=== PATIENT | female | born 1930 | race African-American/Black ===

== ENCOUNTER → 2016-09-29 | Outpatient (CLI) | payer OTHER, MEDICAID ==
--- NOTE | 2016-10-02 17:12 | PCVCIMAG ---
APPROVED REPORT Study performed: 09/29/2016 13:29:45 EXAM: Comprehensive 2D, Doppler, and color-flow Echocardiogram Patient Location: Echo lab Status: routine Other Information Study Quality: Adequate Indications Cardiomyopathy Hypertension/HDD Hypertrophic cardiomyopathy 2D Dimensions IVSd: 14.36 (7-11mm)LVOT Diam: 19.14 (18-24mm) LVDd: 35.49 mm PWd: 13.19 (7-11mm)Ascending Ao: 34.40 (22-36mm) LVDs: 14.86 (25-40mm) Left Atrium: 43.96 (27-40mm) Aortic Root: 21.23 mm LV Single Plane 4CH: 66.29 % LV Single Plane 2CH: 74.42 %Sierra's LVEF: 70.36 % Biplane EF: 69.7 % Volumes Left Atrial Volume (Systole) Single Plane 4CH: 75.59 mLSingle Plane 2CH: 68.57 mL Biplane LA Volume: 73.00 mLLA ESV Index: 45.00 mL/m2 Aortic Valve AoV Peak Dayron.: 2.47 m/s AO Peak Gr.: 25.04 mmHgLVOT Max P.12 mmHg AO Mean Gr.: 14.23 mmHgLVOT Mean P.17 mmHg AO V2 Mean: 1.81 m/sLVOT Max V: 1.17 m/s AO V2 VTI: 61.24 cmLVOT Mean V: 0.82 m/s HARPREET (VTI): 1.29 [id number] V1 VTI: 27.49 cm HARPREET Vmax: 1.36 cm2 SV (LVOT): 79.07 mL Mitral Valve E/A Ratio: 0.9 MV Decel. Time: 298.80 ms MV E Max Dayron.: 1.16 m/s MV A Dayron.: 1.27 m/s IVRT: 163.01 ms TDI E/Lateral E': 19.33E/Medial E': 23.20 Medial E' Dayron.: 0.05 m/s Lateral E' Dayron.: 0.06 m/s Pulmonary Valve PV Peak Dayron.: 0.92 m/sPV Peak Gr.: 3.42 mmHg Pulmonary Vein P Vein S: 0.64 m/sP Vein A: 0.25 m/s P Vein D: 0.30 m/sP Vein A Dur.: 133.8 msec P Vein S/D Ratio: 2.13 Tricuspid Valve TR Peak Dayron.: 3.14 m/s TR Peak Gr.: 39.38 mmHg TV Vmax: 0.86 m/sPA Pressure: 46.00 mmHg Left Ventricle The left ventricle is normal size. There is normal LV segmental wall motion. Moderate concentric left ventricular hypertrophy. Moderate-severe basal septal hypertrophy is present.Intra-cavitary gradient is present. Left ventricular systolic function is normal. The left ventricular ejection fraction is within the normal range. LVEF is 65-70%. The left ventricular diastolic function is normal. Left atrial pressure is elevated. Right Ventricle The right ventricle is normal size. The right ventricular systolic function is normal. Atria Left atrium is moderately dilated. Right atrium is moderately dilated. Aortic Valve Aortic valve is trileaflet. Aortic valve leaflets are mildly thickened. No aortic regurgitation is present. Moderate aortic stenosis. Highest mean aortic valve gradient is 14mmHg. Peak aortic valve gradient is 24mmHg. Calculated HARPREET by the continuity equation is1.4cm2. Mitral Valve Moderate mitral annular calcification. The mitral valvee anulus is moderately thickened but opens well. Mild to moderate mitral regurgitation. No evidence of mitral valve stenosis. Tricuspid Valve The tricuspid valve is normal in structure. Moderate to severe tricuspid regurgitation. Pulmonic Valve The pulmonary valve is normal in structure. There is no pulmonic valvular regurgitation. Great Vessels The aortic root is normal in size. The ascending aorta is normal in size. IVC is normal in size and collapses with >50% inspiration Pericardium There is no pericardial effusion. There is no pleural effusion. <Conclusion> The left ventricle is normal size. Moderate concentric left ventricular hypertrophy. Moderate-severe basal septal hypertrophy is present.Intra-cavitary gradient is present. LVEF is 65-70%. Left atrium is moderately dilated. Right atrium is moderately dilated. Aortic valve is trileaflet. Aortic valve leaflets are mildly thickened. Moderate aortic stenosis. Highest mean aortic valve gradient is 14mmHg. Peak aortic valve gradient is 24mmHg. Calculated HARPREET by the continuity equation is1.4cm2. Moderate mitral annular calcification. The mitral valvee anulus is moderately thickened but opens well. Mild to moderate mitral regurgitation. The tricuspid valve is normal in structure. Moderate to severe tricuspid regurgitation. The pulmonary valve is normal in structure.
== END | disposition home or self-care (01) ==
LOC: PCVCIMAG 13:27
PROVIDERS: ATTEND Internal Medicine
DX: I08.3 Combined rheumatic disorders of mitral, aortic and tricuspid valves (principal); E78.5 Hyperlipidemia, unspecified; I11.0 Hypertensive heart disease with heart failure; I50.20 Unspecified systolic (congestive) heart failure; I25.10 Atherosclerotic heart disease of native coronary artery without angina pectoris; I42.8 Other cardiomyopathies; Z79.82 Long term (current) use of aspirin
CPT/HCPCS: 93306

== ENCOUNTER → 2016-10-17 | Outpatient (CLI) | payer OTHER, MEDICAID | END | disposition home or self-care (01) | LOC: PCVCCLINIC 12:00 | PROVIDERS: ATTEND Internal Medicine | DX: I42.2 Other hypertrophic cardiomyopathy (principal); I25.10 Atherosclerotic heart disease of native coronary artery without angina pectoris; I10 Essential (primary) hypertension; I25.2 Old myocardial infarction; E78.5 Hyperlipidemia, unspecified; Z79.82 Long term (current) use of aspirin; Z96.641 Presence of right artificial hip joint | CPT/HCPCS: 93005; G0463 ==

== ENCOUNTER → 2018-06-18 | Outpatient (CLI) | payer MEDICARE | END | disposition home or self-care (01) | LOC: PCVCCLINIC 12:01 | PROVIDERS: ATTEND Internal Medicine | DX: I10 Essential (primary) hypertension (principal); R94.31 Abnormal electrocardiogram [ECG] [EKG]; E78.5 Hyperlipidemia, unspecified; I42.1 Obstructive hypertrophic cardiomyopathy; I35.0 Nonrheumatic aortic (valve) stenosis; I25.10 Atherosclerotic heart disease of native coronary artery without angina pectoris; Z79.82 Long term (current) use of aspirin; Z79.899 Other long term (current) drug therapy | CPT/HCPCS: 36415; 80061; 93005; G0463 ==

== ENCOUNTER → 2018-12-26 | Outpatient (CLI) | payer MEDICARE | END | disposition home or self-care (01) | LOC: PCVCCLINIC 10:30 | PROVIDERS: ATTEND Internal Medicine | DX: I10 Essential (primary) hypertension (principal); I35.0 Nonrheumatic aortic (valve) stenosis; E78.5 Hyperlipidemia, unspecified; F03.90 Unspecified dementia, unspecified severity, without behavioral disturbance, psychotic disturbance, mood disturbance, and anxiety; Z79.899 Other long term (current) drug therapy; Z79.82 Long term (current) use of aspirin | CPT/HCPCS: 36415; 80061; 93005; G0463 ==